=== PATIENT | female | born 1950 | race Caucasian/White ===

== ENCOUNTER 2017-04-14 14:49 | Inpatient (IN) | payer BC ==
[~2017-04-14] VITALS: Ht 157.5 cm; Wt 105.7 kg
[~2017-04-14 14:49] MED LIST: BENADRYL25 MG PO; NOHOMEMEDICATIONS; NORCO 5-325 TA1 EACH PO; PREDNISONE50 MG PO
[2017-04-14 14:51] VITALS: BP 175/90
[2017-04-14 15:50] LABS: URINE BILIRUBIN NEGATIVE (Negative); URINE BLOOD NEGATIVE (Negative); URINE CLARITY CLEAR; URINE COLOR YELLOW; URINE GLUCOSE-RANDOM NEGATIVE (Negative); URINE KETONES 1+ (Negative); URINE LEUKOCYTES-REFLEX NEGATIVE (Negative); URINE NITRITE-REFLEX NEGATIVE (Negative); URINE PROTEIN NEGATIVE (Negative); URINE UROBILINOGEN 0.2 E.U./dl (0.2-1.0)
[2017-04-14 15:51] LABS: ABSOLUTE LYMPHOCYTES 1.2 thou/uL (0.8-5.3); ABSOLUTE MONOCYTES 0.3 thou/uL (0.0-1.2); ABSOLUTE NEUTROPHILS 8.2 thou/uL (1.6-8.1); BASOPHILS 0.4 %; EOSINOPHILS 0.3 %; HEMATOCRIT 39.7 % (37.0-47.0); HEMOGLOBIN 13.4 gm/dL (12.0-15.0); LYMPHOCYTES 12.5 %; MCH 29.9 pg (26.0-34.0); MCHC 33.6 g/dL (28.0-37.0); MONOCYTES 2.7 %; MPV 8.7 fl. (7.2-11.1); NUCLEATED RBCS 0 /100WBC; PLATELET COUNT* 253 thou/uL (150-400); POLYS 84.1 %; RBC 4.47 mil/uL (4.20-5.00); WBC 9.8 thou/uL (4.0-11.0)
[2017-04-14 15:58] LABS: AMP/METHAMP Negative (Negative); BARBITURATES Negative (Negative); BENZODIAZEPINES Negative (Negative); COCAINE Negative (Negative); METHADONE Negative (Negative); OPIATES Negative (Negative); PCP Negative (Negative); THC Negative (Negative)
[2017-04-14 15:58] LABS: ANION GAP 11 mmol/L (7-16); BUN 11 mg/dL (7-18); CALCIUM 9.3 mg/dL (8.5-10.1); CHLORIDE 103 mmol/L (98-107); CO2 26 mmol/L (21-32); CREATININE 0.7 mg/dL (0.6-1.3); GLUCOSE 177 mg/dL (70-99); POTASSIUM 3.9 mmol/L (3.5-5.1); SODIUM 140 mmol/L (136-145)
[2017-04-14 15:59] LABS: APTT 26.4 Seconds (25.0-31.3); INR 1.1; PROTIME 10.4 Seconds (9.20-11.50)
[2017-04-14 16:10] LABS: ALBUMIN 3.9 g/dL (3.4-5.0); ALKALINE PHOSPHATASE 97 U/L (46-116); NT-PRO BRAIN NAT PEPTIDE 43 pg/mL (<300); SGOT 21 U/L (15-37); SGPT 42 U/L (30-65); TOTAL BILIRUBIN 0.4 mg/dL (<0.1-1.0); TOTAL PROTEIN 7.7 g/dL (6.4-8.2); TROPONIN-I LEVEL <0.06 ng/mL (<0.06)
[2017-04-14 16:34] LABS: ALCOHOL < 10 mg/dL (<10); SALICYLATE < 2.8 mg/dL (2.8-20.0)
[2017-04-14 16:35] LABS: ACETAMINOPHEN < 2 ug/mL (10-30)
[2017-04-14 17:26] VITALS: BP 147/82
[2017-04-14 18:11] VITALS: BP 152/91
--- NOTE | 2017-04-14 18:30 | NUR ---
PT ADMITTED TO ROOM 215 WITH WEAKNESS/ DIZZINESS. REFER TO ASSESSMENT. PT HAS EYES CLOSED AND STATES THE ROOM IS SPINNING WHEN EYES OPENED. DENIES PAIN, N/V. AT BEDSIDE. IV IN RT HAND INFUSING WITHOUT DIFFICULTY. PT VOICES NO CONCERNS AT THIS TIME. CLWR. WCTM.
[2017-04-14 20:00] VITALS: BP 174/97
[2017-04-15] VITALS: BP 122/53
--- NOTE | 2017-04-15 02:52 | NUR ---
PT A/OX4, RA, SR ON THE MONITOR, PT BEGAN CRYING WHEN I ENTERED THE ROOM STATING SHE HAD LEG CRAMPS, PT SAT UP AND PLACED LEGS OVER THE EDGE OF THE BED AND STATED THE LEG CRAMPS WENT AWAY, PT EMOTIONAL ASKING WHY SHE IS SO DIZZY, EDUCATED PT ON PROCESS OF EVALUATIONS BY DOCTORS AND TESTING TO HELP FIND OUT THE REASON ON HER SYMPTOMS, PT CALMED AND WAS ABLE TO REST IN BED, VSS, MEDS/ASSESSMENT PER CHARTING, HOURLY ROUNDING/FALL PRECAUTIONS IN PLACE, WILL CONT TO MONITOR.
[2017-04-15 04:09] VITALS: BP 117/57
[2017-04-15 05:37] LABS: ANION GAP 10 mmol/L (7-16); BUN 6 mg/dL (7-18); CALCIUM 8.6 mg/dL (8.5-10.1); CHLORIDE 107 mmol/L (98-107); CHOLESTEROL 204 mg/dL (<200); CO2 27 mmol/L (21-32); CREATININE 0.6 mg/dL (0.6-1.3); GLUCOSE 120 mg/dL (70-99); HDL CHOLESTEROL 52 mg/dL (>40); LDL CHOLESTEROL 128 mg/dL (<100); MAGNESIUM 1.9 mg/dL (1.8-2.4); POTASSIUM 3.9 mmol/L (3.5-5.1); SODIUM 144 mmol/L (136-145); TC:HDL 3.9 Ratio (Not establshd); TRIGLYCERIDE 122 mg/dL (<150); VLDL 24 mg/dL (<40)
[2017-04-15 05:40] LABS: SERUM ASSESSMENT Clear
[2017-04-15 08:00] VITALS: BP 138/77
--- NOTE | 2017-04-15 09:17 | NUR ---
ASSUMED PT CARE [id number], FULL ASSESMENT DONE CHARTED. PT A/O X4, DENIES PAIN, STATES HER DIZZYNESS IS BETTER TOAY BUT THERE IS A LITTLE BIT LEFT. WHITTAKER IN PLACE DRAINING YELLOW URINE, FALL PRECATUIONS IN PLACE. CALL LIGHT IN REACH. WILL CONTINUE WITH PLAN OF CARE.
[2017-04-15 12:00] VITALS: BP 130/69
--- NOTE | 2017-04-15 14:31 | EKG ---
[place] [address] ELECTROCARDIOGRAM REPORT Name: HEATHER KHAN Room: [address] ADM IN [facility].#: [id number] Admission: 04/14/17 Attend Phys: Kenneth Smith MD Discharge: Date of : 50 Report #: [id number] THIS REPORT FOR: //name// [facility] ED Test Date: 2017-04-14 Test Time: 15:07:57 Pat Name: HEATHER DOSHI Department: Room: [facility] Gender: F Food Technologist: Salas ANTHONY : 1950 Requested By: Rickey Sargent Order Number: [id number] MD: Terrence Martínez Measurements Intervals [place] Rate: 85 P: 53 SC: 130 QRS: 9 QRSD: 69 T: 5 QT: 370 QTc: 440 Interpretive Statements Sinus rhythm poor r wave progression Compared to ECG 12/26/2015 16:43:22 Sinus tachycardia no longer present Electronically Signed On 04-15-2017 14:31:44 TRADE CLERK by Terrence Martínez [email or web address] <ELECTRONICALLY SIGNED> By: Terrence Martínez MD, [facility] 04/15/17 1431 1507 1507 Terrence Martínez MD, [facility] /EPI
[2017-04-15 16:00] VITALS: BP 128/72
[2017-04-15 20:00] VITALS: BP 140/78
[2017-04-15 23:07] LABS: IgA 219 mg/dL (87-352); IgG 718 mg/dL (700-1600); IgM 51 mg/dL (26-217)
[2017-04-16] VITALS: BP 135/59
[2017-04-16 03:14] LABS: GLYCOHEMOGLOBIN (HGB A1C) 6.3 % (4.8-5.6)
[2017-04-16 04:00] VITALS: BP 127/74
--- NOTE | 2017-04-16 06:46 | NUR ---
NO ACUTE CHANGES WITH PT OVER NIGHT, PT A/OX4, SR ON THE MONITOR, RA, UP WITH ONE TO BSC WITH NO ISSUES URINATING SINCE WHITTAKER REMOVAL ON PREVIOUS SHIFT, PT REPORTED FEELING A LOT BETTER, NOT DIZZY, MEDS/ASSESSMENT PER CHARTING, HOURLY ROUNDING/FALL PRECAUTIONS IN PLACE, VSS, WILL CONT TO MONITOR.
[2017-04-16 08:00] VITALS: BP 109/66
[2017-04-16] MEDS ORDERED: ANTIVERT25 MG PO (09:20)
[2017-04-16] MEDS ORDERED: ATORVASTATIN CA40 MG PO (09:20)
[2017-04-16] MEDS ORDERED: ADULT LOW DOSE81 MG PO (09:20)
[2017-04-16] MEDS ORDERED: GLUCOPHAGE500 MG PO (09:20)
--- NOTE | 2017-04-16 11:34 | NUR ---
ASSUMED CARE OF PT AT 0730. PT RESTING IN BED WAITING FOR BREAKFAST. PT A&0X4. DENIES ANY PAIN OR SHORTNESS OF BREATH AT THIS TIME. PT TRACING SR ON THE APPLE PRESS OPERATOR. ON RA SAT 93%. PT UP WITH 1 ASSIST TO BSC. PT UP TO RECLINER FOR ALL MEALS AND THROUGHOUT SHIFT. IVF. POSSIBLE DISCHARGE HOME TODAY. AM ASSESSMENT CHARTED. MEDICATIONS PER MAR. PT REPOSITIONS SELF IN BED WITH REMINDERS. HOURLY ROUNDING OBSERVED. BED IN LOW POSITION. BED ALARM IN PLACE. FALL PRECAUTIONS IN PLACE. CALL LIGHT WITHIN REAC
[2017-04-16 11:58] VITALS: BP 141/81
[2017-04-16 11:59] VITALS: BP 141/81
--- NOTE | 2017-04-16 12:38 | NUR ---
Pt discharging to home today, CM provided Pt with a PCP list
--- NOTE | 2017-04-16 13:41 | 2DMMODE ---
[place] [address] 2 D/M-MODE ECHOCARDIOGRAM Name: HEATHER KHAN Room: [address] IN [facility]#: [id number] Admission: 04/14/17 Attend Phys: Kenneth Smith, Discharge: Date of : 50 Date of Service: 04/16/17 1341 Report #: [id number] THIS REPORT FOR: //name// APPROVED REPORT Study performed: 04/16/2017 11:34:31 EXAM: Comprehensive 2D, Doppler, and color-flow Echocardiogram Patient Location: In-Patient Room #: [facility] Status: routine BSA: 2.05 HR: 84 bpm BP: 127/74 mmHg Rhythm: NSR Other Information Study Quality: Good Indications CVA/TIA Echo Enhancing Agent Indication: Rule out Shunt Agent(s) / Amount(s) Used: Agitated Saline 10 cc 2D Dimensions LVEF(%): 71.87 (>50%) IVSd: 12.21 (7-11mm) LVOT Diam: 18.75 (18-24mm) LVDd: 42.85 mm PWd: 9.36 (7-11mm) Ascending Ao: 27.97 (22-36mm) LVDs: 25.38 (25-40mm) Aortic Root: 30.11 mm Bobby's LVEF: 71.87 % Volumes Left Atrial Volume (Systole) LA ESV Index: 18.20 mL/m2 Aortic Valve AoV Peak Mati.: 1.45 m/s AO Peak Gr.: 8.46 mmHg LVOT Max P.89 mmHg AO Mean Gr.: 4.96 mmHg LVOT Mean P.72 mmHg LVOT Max V: 1.21 m/s AO V2 VTI: 25.94 cm LVOT Mean V: 0.75 m/[place] [address] 2 D/M-MODE ECHOCARDIOGRAM Name: HEATHER KHAN Room: [address] IN .R.#: [id number] Admission: 04/14/17 Attend Phys: Kenneth Smith, Discharge: Date of : 50 Date of Service: 04/16/17 1341 Report #: [id number] LACY (VTI): 2.42 cm2 LVOT V1 VTI: 22.77 cm Mitral Valve E/A Ratio: 0.86 MV Decel. Time: 188.55 ms MV E Max Mati.: 0.98 m/s MV PHT: 54.68 ms MVA (PHT): 4.02 cm2 TDI E/Lateral E': 9.80 E/Medial E': 9.80 Medial E' Mati.: 0.10 m/s Lateral E' Mati.: 0.10 m/s Pulmonary Valve PV Peak Mati.: 1.03 m/s PV Peak Gr.: 4.27 mmHg Left Ventricle The left ventricle is normal size. There is normal LV segmental wall motion. There is normal left ventricular wall thickness. Left ventricular systolic function is normal. The left ventricular ejection fraction is within the normal range. LVEF is 55-60%. Grade I - abnormal relaxation pattern. Right Ventricle The right ventricle is normal size. The right ventricular systolic function is normal. Atria The left atrium size is normal. Interatrial septum is intact without evidence of ASD or PFO. The right atrium size is normal. Aortic Valve The aortic valve is normal in structure. No aortic regurgitation is present. There is no aortic valvular stenosis. Mitral Valve The mitral valve is normal in structure. Trace mitral regurgitation. No evidence of mitral valve stenosis. Tricuspid Valve The tricuspid valve is normal in structure. Unable to assess PA pressure. Trace tricuspid regurgitation. Pulmonic Valve Pulmonic valve is not well visualized. There [place] [address] 2 D/M-MODE ECHOCARDIOGRAM Name: HEATHER KHAN Room: [address] IN ..#: [id number] Admission: 04/14/17 Attend Phys: Kenneth Smith, Discharge: Date of : 50 Date of Service: 04/16/17 1341 Report #: [id number] regurgitation. Great Vessels The aortic root is normal in size. IVC is normal in size and collapses with >50% inspiration Pericardium There is no pericardial effusion. <Conclusion> Left ventricular systolic function is normal. The left ventricular ejection fraction is within the normal range. <ELECTRONICALLY SIGNED> By: Terrence Martínez MD, FACC 04/16/17 1341 1341 1341 Terrence Martínez MD, FACC /INF
[2017-04-16 14:20] VITALS: BP 141/81
--- NOTE | 2017-04-16 15:17 | NUR ---
DISCHARGE ORDERS RECEIVED. DISCHARGE INSTRUCTIONS, CARE NOTES, SCRIPTS AND FOLLOW UP APPTS GIVEN TO PT. PT COMMUNICATES UNDERSTANDING OF DISCHARGE TEACHING. IV AND DATA WAREHOUSING ENGINEER REMOVED. PT DISCHARGED WITH ALL BELONGINGS AND PAPERWORK VIA WHEELCHAIR WITH NURSING STAFF TO SPOUSE OWN PERSONAL VEHICLE. PT GIVEN RESOURCES REGARDING PRIMARY CARE PHYSICIANS.
--- NOTE | 2017-04-17 03:19 | NUR ---
SPOKE WITH PATIENTS , WHO STATED THAT DISCHARGE MEDS HAD BEEN CALLED INTO WRONG PHARM[facility]Y. REQUESTED THAT THEY BE CALLED INTO [facility] ON [address] CALLED THE PHARMACIST AND ORDERED THE FOLLOWING MEDS AT ... LIPITOR 40 MG 1 TAB PO DAILY. #30 WITH 6 REFILLS ASA 81MG 1 TAB PO DAILY #30 WITH 6 REFILLS GLUCOPHAGE 500MG 1 TAB PO BID WITH MEALS #60 WITH 6 REFILLS MECLIZINE 25MG 1 TAB PO Q 6 HOURS NEEDED FOR DIZZINESS OR VERTIGO #30 WITH NO REFILLS tHIS MEDS WERE CALLED IN UNDER DR AUBREY MAZARIEGOS.
[2017-04-19 08:07] LABS: ANA INTERPRETATION Negative (Negative)
--- NOTE | 2017-04-23 10:39 | CON ---
[address] [address] CONSULTATION Name: HEATHER KHAN Room: [address]#: [id number] Admission: 04/14/17 Attend Phys: Kenneth Smith MD Discharge: 04/16/17 Date of : 50 Report #: [id number] THIS REPORT FOR: //name// CC: [facility] physician/PCP Kenneth Smith DATE OF SERVICE: 04/15/2017 HISTORY OF PRESENT ILLNESS: This is a 66-year-old female patient who was evaluated by me to determine any neurological etiology for the patient's dizziness. The patient's history is difficult to get because she gets irritated very fast and our history changes to some extent. She indicates that she started having this acute onset of dizziness. Symptoms started spontaneously and they were severe. They are moderately improved. She was also very nauseous during this period. She does not know any other associated features with it and she continued to have these symptoms. Initially, she said she is not taking any medication, but subsequently she said she was put on aspirin by a Veternit doctor and she has taken it for a long time. REVIEW OF SYSTEMS: Indicates that this patient had strokes on her MRI. She indicates that strokes were diagnosed on imaging study. She does not know which year it was and in fact gets irritated when I ask her that. She also had some injury to the left arm at one time. She indicated that sometime she has been told she is a diabetic, other time she has been told she is a borderline diabetic. Sometime it looks like she lives with the , but able to do most of the things by herself. She does not need any help in the day to day activity. She gives a history that for about 2 years she is having weakness in the lower extremity. She is again not very forthcoming, what this weakness is from and where she has been, and gets very irritated when I asked those questions to her, but this weakness requires her to use cane, but she is still able to walk. This was her relevant 14-point review of systems, which I carried out on this patient. PAST MEDICAL HISTORY: Positive for what looks like multiple strokes in the brain and a question of rheumatic fever. FAMILY HISTORY: Negative for early age stroke. SOCIAL HISTORY: She indicates she lives with her , but able to do everything independently. She denies the use of alcohol or tobacco. PHYSICAL EXAMINATION: Indicates she is alert, responsive. She is oriented. When further cognitive testing were done, she got irritated. Her speech looks intact. Cranial nerve examination 2-12 looks mostly unremarkable. She is weak in both lower extremities symmetrically. Her position sense is intact. Her reflexes are diminished. There is no meningeal [place] [address] CONSULTATION Name: HEATHER KHAN Room: [address] IN ..#: [id number] Admission: 04/14/17 Attend Phys: Kenneth mSith MD Discharge: 04/16/17 Date of : 50 Report #: [id number] bruit. I could not look at the patient's fundi. Her pulses are palpable. She has no edema, cyanosis or jaundice. She is a well-developed individual who does not have any dysmorphic features of eyes, ears and face. Her vision and hearing look adequate. Cardiac examination does show a possible murmur. Respiratory examinations appear unremarkable. Blood pressure is 130/69, respirations 16, pulse is 86, temperature is 98.1. LABORATORY DATA: White count is normal. GFR is 100. She did have an MRI. MRI does show bilateral strokes in different distribution, but they are all old. IMPRESSION: 1. Dizziness. As far as dizziness is concerned that is probably ENT pathology. There is nothing in the brain, which can explain her dizziness. 2. Multiple strokes in the brain, which is old. Duration is unknown both clinically and radiologically. But she needs some workup for that. We need to see whether there is any source of embolization or whether any carotid is involved. 3. Leg weakness for which she again needs workup, part of it as an outpatient, part of it as an inpatient. I discussed all of it with the patient in detail and I told her that she needs further workup. She also needs PT, OT. She is not very hot on that because she said the last time they burned her arm, but I stressed the importance and hopefully she will agree. RECOMMENDATIONS: 1. We will get an echocardiogram because of multiple strokes. 2. Workup for underlying strokes. 3. We would like to get a carotid Doppler and if she allows do an MRA. 4. Some blood workup for both stroke as well as neuropathy. 5. EMG as an outpatient. 6. Rest of the workup will depend upon the outcome of above testing and how much testing she allows. She basically argued with me for every testing and I will order some and see how much she allows. Thank you very much for this referral and Dr. Rosa will follow this patient with you from tomorrow. <ELECTRONICALLY SIGNED> By: Rufino Gibson MD 04/23/17 1039 1545 [id number] hiren Noland
== END 2017-04-16 15:18 | disposition home or self-care (01) | DRG 149 ==
LOC: M.ERS 14:49 → M.TBA-ER 16:59 → M.2W 16:59
PROVIDERS: Family Medicine; Psychiatry & Neurology Neuromuscular Medicine; ADMIT Internal Medicine
DX: H81.10 Benign paroxysmal vertigo, unspecified ear (principal); E11.9 Type 2 diabetes mellitus without complications; E78.5 Hyperlipidemia, unspecified; Z98.891 History of uterine scar from previous surgery; Z88.0 Allergy status to penicillin; Z88.1 Allergy status to other antibiotic agents; Z86.73 Personal history of transient ischemic attack (TIA), and cerebral infarction without residual deficits

== ENCOUNTER 2017-11-12 06:54 | Inpatient (IN) | payer BC ==
[~2017-11-12] VITALS: Ht 157.5 cm; Wt 103.0 kg
[~2017-11-12 06:54] MED LIST changes: +ADULT LOW DOSE81 MG PO; +ANTIVERT25 MG PO; +ATORVASTATIN CA40 MG PO; +GLUCOPHAGE500 MG PO
[2017-11-12 07:01] VITALS: BP 136/97
[2017-11-12] MEDS ORDERED: MULTI VITAMIN1 EACH PO (07:08)
--- NOTE | 2017-11-12 07:14 | NUR ---
DR NORRIS AT PT BEDSIDE.
[2017-11-12 07:30] LABS: ABSOLUTE BASOPHILS 0.1 thou/uL (0.0-0.2); ABSOLUTE EOSINOPHILS 0.1 thou/uL (0.0-0.7); ABSOLUTE LYMPHOCYTES 2.1 thou/uL (0.8-5.3); ABSOLUTE MONOCYTES 0.4 thou/uL (0.0-1.2); ABSOLUTE NEUTROPHILS 4.3 thou/uL (1.6-8.1); BASOPHILS 0.8 %; EOSINOPHILS 1.3 %; HEMATOCRIT 39.6 % (37.0-47.0); HEMOGLOBIN 13.2 gm/dL (12.0-15.0); LYMPHOCYTES 29.9 %; MCH 29.1 pg (26.0-34.0); MCHC 33.3 g/dL (28.0-37.0); MCV 87.4 fL (80.0-100.0); MONOCYTES 5.5 %; MPV 8.2 fl. (7.2-11.1); NUCLEATED RBCS 0 /100WBC; PLATELET COUNT* 263 thou/uL (150-400); POLYS 62.5 %; RBC 4.53 mil/uL (4.20-5.00); RDW-CV 15.4 % (10.5-14.5)
[2017-11-12 07:33] LABS: ANION GAP 9 mmol/L (7-16); BUN 15 mg/dL (7-18); CALCIUM 8.9 mg/dL (8.5-10.1); CHLORIDE 103 mmol/L (98-107); CO2 26 mmol/L (21-32); CREATININE 0.7 mg/dL (0.6-1.3); GLUCOSE 155 mg/dL (70-99); POTASSIUM 3.4 mmol/L (3.5-5.1); SODIUM 138 mmol/L (136-145)
[2017-11-12 07:34] LABS: INR 0.9; PROTIME 9.6 Seconds (9.20-11.50)
[2017-11-12 07:43] LABS: ALBUMIN 3.7 g/dL (3.4-5.0); ALKALINE PHOSPHATASE 95 U/L (46-116); LIPASE 152 U/L (73-393); NT-PRO BRAIN NAT PEPTIDE 58 pg/mL (<300); SGOT 13 U/L (15-37); SGPT 19 U/L (30-65); TOTAL BILIRUBIN 0.2 mg/dL (<0.1-1.0); TOTAL PROTEIN 7.8 g/dL (6.4-8.2); TROPONIN-I LEVEL <0.06 ng/mL (<0.06)
--- NOTE | 2017-11-12 07:48 | NUR ---
CT RESULTS BACK AND AVAILABLE.
[2017-11-12 09:01] VITALS: BP 142/77
--- NOTE | 2017-11-12 09:15 | NUR ---
ER ADMIT TO RM 213 TELEPHONE REPORT GIVEN PATIENT TO RM SPOUSE AT BEDSIDE BOTH ORIENTED TO RM AND CALL LIGHT NO C/O PAIN
[2017-11-12 09:30] VITALS: BP 152/90
[2017-11-12 12:29] VITALS: BP 133/73
--- NOTE | 2017-11-12 14:14 | NUR ---
MEDICAL CENTER MANAGER RECEIVED A CONSULT TO SEND A REFERRAL TO THE HEARING AND BALANCE SPECIALIST FOR VERTIGO. MEDICAL CENTER MANAGER ATTEMPTED TO CONTACT THE HEARING AND BALANCE SPECIALIST TO DISCUSS THE REFFERAL AND LEFT A MESSAGE FOR THE OFFICE TO RETURN CALL. MEDICAL CENTER MANAGER PROVIDED THE PATIENT CONTACT INFO FOR THE HEARIING AND BALANCE SPECIALIST OF AND A PRINTED PATIENT INFO PACKET FROM THE HEARING AND BALANCE OFFICE. INFORMED BY THE RN IN-CHARGE OF THE PATIENT THAT DR EDUARDO WOULD LIKE TO DISCUSS THIS FURTHER WITH THE PATIENT AFTER ORDERED TESTING PRIOR TO MAKING THE REFERRAL. CM WILL REMAIN AVAILABLE TO ASSIST AND FOLLOW NEEDED.
--- NOTE | 2017-11-12 14:44 | EKG ---
[place] [address] ELECTROCARDIOGRAM REPORT Name: HEATHER KHAN Room: [address] ADM IN [facility].#: [id number] Admission: 11/12/17 Attend Phys: Kenneth Smith MD Discharge: Date of : 50 Report #: [id number] THIS REPORT FOR: //name// [facility] ED Test Date: 2017-11-12 Test Time: 07:56:35 Pat Name: HEATHER DOSHI Department: Room: [facility] Gender: F Endoscopy Technician: [facility] : 1950 Requested By: Cachorro Larkin Order Number: [id number] MD: Clint Hensley Measurements Intervals [place] Rate: 79 P: 54 [place]: 129 QRS: 6 QRSD: 72 T: -5 QT: 374 QTc: 429 Interpretive Statements Sinus rhythm Inferior infarct, age indeterminate possible Anterior infarct, old Compared to ECG 04/14/2017 15:07:57 Myocardial infarct finding persists Electronically Signed On 11-12-2017 14:44:23 CDT by Clint Hensley [email or web address] <ELECTRONICALLY SIGNED> By: Clint Hensley MD, [facility] 11/12/17 1444 0756 0756 Clint Hensley MD, [facility] /EPI
--- NOTE | 2017-11-12 16:01 | 2DMMODE ---
[place] [address] 2 D/M-MODE ECHOCARDIOGRAM Name: HEATHER KHAN Room: [address] IN [facility]#: [id number] Admission: 11/12/17 Attend Phys: Kenneth Smith, Discharge: Date of : 50 Date of Service: 11/12/17 1601 Report #: [id number] THIS REPORT FOR: //name// APPROVED REPORT Study performed: 11/12/2017 15:25:04 EXAM: Comprehensive 2D, Doppler, and color-flow Echocardiogram Patient Location: In-Patient Room #: 213 Status: routine BSA: 2.02 HR: 81 bpm BP: 133/73 mmHg Rhythm: NSR Other Information Study Quality: Good Indications Dyspnea 2D Dimensions LVEF(%): 70.02 (>50%) IVSd: 11.03 (7-11mm) LVOT Diam: 19.18 (18-24mm) LVDd: 41.33 mm PWd: 9.65 (7-11mm) Ascending Ao: 28.63 (22-36mm) LVDs: 25.16 (25-40mm) Aortic Root: 28.23 mm Bobby's LVEF: 70.02 % Volumes Left Atrial Volume (Systole) LA ESV Index: 18.50 mL/m2 Aortic Valve AoV Peak Mati.: 1.60 m/s AO Peak Gr.: 10.22 mmHg LVOT Max P.69 mmHg AO Mean Gr.: 5.74 mmHg LVOT Mean P.50 mmHg LVOT Max V: 1.19 m/s AO V2 VTI: 32.06 cm LVOT Mean V: 0.72 m/s LACY (VTI): 2.09 cm2 LVOT V1 VTI: 23.16 cm Mitral Valve E/A Ratio: 0.84 [place] [address] 2 D/M-MODE ECHOCARDIOGRAM Name: HEATHER KHAN Room: [address] IN [facility]#: [id number] Admission: 11/12/17 Attend Phys: Kenneth Smith, Discharge: Date of : 50 Date of Service: 11/12/17 1601 Report #: [id number] MV Decel. Time: 207.19 ms MV E Max Mati.: 0.88 m/s MV PHT: 60.09 ms MVA (PHT): 3.66 cm2 TDI E/Lateral E': 6.77 E/Medial E': 7.33 Medial E' Mati.: 0.12 m/s Lateral E' Mati.: 0.13 m/s Pulmonary Valve PV Peak Mati.: 1.07 m/s PV Peak Gr.: 4.60 mmHg Left Ventricle The left ventricle is normal size. There is normal LV segmental wall motion. There is normal left ventricular wall thickness. Left ventricular systolic function is normal. The left ventricular ejection fraction is within the normal range. LVEF is 55-60%. Grade I - abnormal relaxation pattern. Right Ventricle The right ventricle is normal size. The right ventricular systolic function is normal. Atria The left atrium size is normal. The right atrium size is normal. Aortic Valve Mild aortic valve sclerosis. No aortic regurgitation is present. There is no aortic valvular stenosis. Mitral Valve The mitral valve is normal in structure. Trace mitral regurgitation. No evidence of mitral valve stenosis. Tricuspid Valve The tricuspid valve is normal in structure. Trace tricuspid regurgitation. Unable to assess PA pressure. Pulmonic Valve The pulmonary valve is normal in structure. There is no pulmonic valvular regurgitation. Great Vessels The aortic root is normal in size. IVC is [place] [address] 2 D/M-MODE ECHOCARDIOGRAM Name: HEATHER KHAN Room: [address] IN ..#: [id number] Admission: 11/12/17 Attend Phys: Kenneth Smith, Discharge: Date of : 50 Date of Service: 11/12/17 1601 Report #: [id number] collapses with >50% inspiration Pericardium There is no pericardial effusion. <Conclusion> The left ventricle is normal size. There is normal left ventricular wall thickness. Left ventricular systolic function is normal. The left ventricular ejection fraction is within the normal range. Grade I - abnormal relaxation pattern. LVEF is 55-60%. The right ventricle is normal size. The left atrium size is normal. Mild aortic valve sclerosis. No aortic regurgitation is present. There is no aortic valvular stenosis. The mitral valve is normal in structure. Trace mitral regurgitation. IVC is normal in size and collapses with >50% inspiration There is no pericardial effusion. There is normal LV segmental wall motion. <ELECTRONICALLY SIGNED> By: Clint Hensley MD, FACC 11/12/17 160 00 00 Clint Hensley MD, FACC /INF
[2017-11-12 16:35] VITALS: BP 131/69
--- NOTE | 2017-11-12 18:10 | NUR ---
PATIENT REMAINS A AND O X 4 SR LUNGS CTA/DIM/RA O2 SAT MID 90S GOOD APPETITE LAST BM UNKNOWN GOO UO, UNMEASURED UP WITH ASSIST, STILL UNSTEADY AND WEAK MINIMAL DIZZINEES THIS PM NO C/O PAIN IV R AC 20 GA SL MRI OF HEAD AND ECHO STILL TO BE COMPLETED CALL LIGHT IN REACH AND INSTRUCTION GIVEN AND FOLLOWED
[2017-11-12 19:09] LABS: CHOLESTEROL 216 mg/dL (<200); HDL CHOLESTEROL 47 mg/dL (>40); LDL CHOLESTEROL 135 mg/dL (<100); SERUM ASSESSMENT CLEAR; TC:HDL 4.6 Ratio (Not establshd); TRIGLYCERIDE 173 mg/dL (<150); VLDL 35 mg/dL (<40)
[2017-11-12 20:15] VITALS: BP 148/71
[2017-11-12 23:09] LABS: GLYCOHEMOGLOBIN (HGB A1C) 5.9 % (4.8-5.6)
[2017-11-13] VITALS: BP 142/56
--- NOTE | 2017-11-13 03:26 | NUR ---
ASSUMED CARE OF PT AT 1900. PT IS ALERT AND ORIENTED. NIH IS 0. VSS. KARIS. NO COMPLAINTS OF PAIN. PT IS IN SINUS RYTHM ON THE TELEMETRY. PT IS RESTING COMFORTABLY IN BED. RESPIRATIONS ARE EVEN AND NONLABORED. WILL CONTINUE TO MONITOR PT.
[2017-11-13 04:00] VITALS: BP 126/64
--- NOTE | 2017-11-13 07:00 | NUR ---
RECEIVED REPORT AND ASSUMED CARE AT 0340. PT RESTING IN ROOM, CARDIAC MONITORING IN PLACE. VSS. BED LOCKED IN LOWEST POSITION. CALL LIGHT WITHIN REACH. PT UP AD JIMENA WITH CANE, ON RA. HOURLY ROUNDING COMPLETED AND ALL NEEDS MET. WILL CONTINUE TO MONITOR
--- NOTE | 2017-11-13 08:49 | NUR ---
PT RESTING IN BED, APPEARS ALERT O X 4, DENIES CHEST PAIN, SOB , PAIN OR DISCOMFORT. PT DENIES FEELING DIZZY OR LIGHTHEADED, DENIES VERTIGO. PT STATTES PRIOR TO ADMISSION, HAD VERTIGO EPISODE, STATES ROOM WAS SPINNING, DENIES VERTIGO NOW. DENIES EAR PAIN. SR OM MONITOR BP LYING 143/74 SITTING 162/90 TAKEN ,MANUALLY STAANDING 164/96 TAKEN ADAMA
[2017-11-13 09:05] VITALS: BP 143/74
--- NOTE | 2017-11-13 10:55 | CON ---
[address] [address] CONSULTATION Name: HEATHER KHAN Room: [address] IN .R.#: [id number] Admission: 11/12/17 Attend Phys: Kenneth Smith MD Discharge: Date of : 50 Report #: [id number] THIS REPORT FOR: //name// CC: [facility] physician/PCP Kenneth Smith MD DATE OF SERVICE: 11/12/2017 HISTORY OF PRESENT ILLNESS: The patient is a 67-year-old female who for approximately a year, has had paresthesias in the lower extremities. She states that she has been to 4 different physicians. She had some type of diagnostic studies of the arteries or veins in the lower extremities, but nothing was found that would cause the numbness. Since then, she has had continued numbness she describes it from the knees down. The patient also had an episode of dizziness along with nausea. She had a similar episode at the first part of this year. That demonstrated chronic vascular changes, but no acute intracranial abnormality. With that hospital admission, the patient also had a carotid Doppler, which demonstrated no hemodynamically significant stenosis. An echocardiogram was also done during this hospital stay and was unremarkable as well. PAST MEDICAL HISTORY: Rheumatic fever, diabetes mellitus. PAST SURGICAL HISTORY: Left elbow fracture with repair, section. MEDICATIONS: Aspirin 81 mg daily, Antivert 25 mg q. 6 hours p.r.n. ALLERGIES: PENICILLIN, CEPHALOSPORINS, CLAVULANIC ACID, CORTISONE, PENICILLIN. VITAL SIGNS: Temperature is 37, pulse rate 84, respiratory rate 19, blood pressure 152/90, bedside pulse oximetry 94% on 2 liters nasal cannula. LABORATORY DATA: Hematology: White blood count 7, hemoglobin 13.2, hematocrit 39.6, MCV 87.4, platelet count 263,000. INR 0.9. Chemistry: Sodium 138, potassium 3.4, chloride 103, carbon dioxide 26, BUN 15, creatinine 0.7, glucose 83, calcium 8.9, total bilirubin 0.2. Liver functions normal. Lipase 152. IMAGING STUDIES: Chest x-ray demonstrates no acute process. CT scan of the head is stable and f demonstrates areas of chronic ischemia within the posterior high right parietal lobe similar to prior exam. No evidence of acute intracranial hemorrhage or abnormality noted. NEUROLOGIC: Cranial nerves 2-12 are grossly intact. Motor exam demonstrates symmetrical strength in all 4 extremities with tone and bulk normal. Reflexes are symmetrical throughout. Plantar responses [place] [address] CONSULTATION Name: RENUKA DOSHIHEATHER CAGE Room: [address] IN [facility]#: [id number] Admission: 11/12/17 Attend Phys: Kenneth Smith MD Discharge: Date of : 50 Report #: [id number] demonstrates no evidence of dysmetria. Sensory exam demonstrates decreased light touch to the knees bilaterally. The patient also has markedly diminished proprioception at the great toes. IMPRESSION: This patient has had an episode of vertigo. I explained to the patient that vertigo was an isolated symptom, is uncommon in stroke. She is scheduled for an MRI head today. However, I will refer her for outpatient vestibular testing to [facility] in [facility]. The patient may also have peripheral neuropathy. My office will call her next week to schedule an EMG. I will also order some screening laboratory tests to look for other causes of neuropathy. She has a hemoglobin A1c pending, but I will order a TSH, B12 and serum protein electrophoresis. I thank you for your kind referral of the patient. <ELECTRONICALLY SIGNED> By: Emperatirz Rosa DO 11/13/17 1055 1109 [id number] Rosa DO /nt
[2017-11-13 11:34] VITALS: BP 144/87
[2017-11-13 12:57] VITALS: BP 144/87
[2017-11-13 13:17] VITALS: BP 144/87
[2017-11-16 17:09] LABS: GLOBULIN TOTAL 3.2 g/dL (2.2-3.9); M-SPIKE Not Observed g/dL (Not Observed)
== END 2017-11-13 13:25 | disposition home or self-care (01) | DRG 149 ==
LOC: M.ERS 06:54 → M.TBA-ER 08:13 → M.2W 08:13
PROVIDERS: Emergency Medicine; Psychiatry & Neurology Neurology; ADMIT Internal Medicine
DX: H81.399 Other peripheral vertigo, unspecified ear (principal); I42.9 Cardiomyopathy, unspecified; I50.30 Unspecified diastolic (congestive) heart failure; E78.5 Hyperlipidemia, unspecified; E11.42 Type 2 diabetes mellitus with diabetic polyneuropathy; I11.0 Hypertensive heart disease with heart failure; Z86.73 Personal history of transient ischemic attack (TIA), and cerebral infarction without residual deficits; Z98.891 History of uterine scar from previous surgery; Z87.81 Personal history of (healed) traumatic fracture; Z79.82 Long term (current) use of aspirin; Z79.899 Other long term (current) drug therapy; Z88.0 Allergy status to penicillin; Z88.1 Allergy status to other antibiotic agents; Z88.8 Allergy status to other drugs, medicaments and biological substances